=== PATIENT | female | born 1985 | race Hispanic/Latino ===

== ENCOUNTER 2018-05-17 18:25 | Inpatient (IN) | payer OTHER ==
[2017-11-13 10:26] VITALS: BMI 18.8
[2018-05-17] MEDS ORDERED: Oxytocin 30 UNIT 30 UNITS/500 ML BAG IV SCH (20:45)
--- NOTE | 2018-05-17 21:45 | OBADHP ---
Datetime: 05/17/2018 19:50 Admit Comment, IP Provider: CC: Vaginal spotting HPI: Patient is a 32 year old 38.3 weeks with LMP (08/27/17) and PAMELLA (05/28/18) by US, who presents to the [facility] with complaints of vaginal spotting that started today. Patient states that she was seen in the office this morning and was noted to be 4cm dilated with vaginal spotting. Patient admits to light cramping, pelvic pressure and light vaginal spotting but denies any vaginal bleeding, LOF, rece nt sexual activity. Patient admits to movement. 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 Hx: Menarche: 10 [place]: 12/regular/3-5 days Admits to hx of fibroids, had a hysteroscopic myomectomy 12/2016 Denies hx of STDs, Abnormal Pap smear and Ovarian cyst OB Hx: G1: Current, no complications PMHx: Asthma PSHx: hysterosopic Myomectomy FHx: Denies Medications: Albuterol, Iron supplement and vitamins Allergies: NKDA Social Hx: Lives with , senior staff psychologist, denies current or former use of tobacco, illicit drugs an d ETOH VS: See above PE: See PE comments A/P: Patient is a 32 year old 38.3 weeks with LMP (08/27/17) and PAMELLA (05/28/18) by US, who present s to the [facility] with complaints of vaginal spotting that started today with SVE in the office today at 4cm 1. Admit to the unit as per Dr. Washington 2. CEFM and [place] 3. Admission orders- See orders 4. LR @ 125cc/hr 5. Pitocin as per Dr. Murtaza Pitts 5. Anesthesia consult upon request 6. Anticipate spontaneous vaginal delivery All plans and managment instructions as per Dr. Murtaza Pitts All plans and management discussed with Dr. Felix Stiles, DO PGY 2 agree with above @ 38.3 wks with vaignal bleeding in labor admit cont otoco adn eemf pain magnemtn Extremities - PN: Normal Abdomen - PN: Normal Lungs - PN: Normal Heart - PN: Normal General - PN: Normal FHR - Baseline A Provider: 140 Comments, ACOG Physical Exam: Gen: NAD Cardio: RRR, +S1, +S2 Pulm: CTA B/BL Abdomen: Soft, Gravid Ext: No edema, No cyanosis and no clubbing EFM: 140, + accelerations [place]: Variability Gestation - Est Wks by US: 38.3 IP Hx Assessment: The History has been Reviewed and is Current Vital Signs Provider: Reviewed IP Chief Complaint: Vaginal bleeding NICHD Variability Prov Fetus A: Moderate 6-25bpm NICHD Accel Fetus A IP Provider: 15X15 Dilatation, Provider: 3 Effacement, Provider: 50 Station, Provider: -3 (Annotations: Data stored by CPN on behalf of user) IP Adm Impression: Term, intrauterine IP Admit Plan: Admit to unit
[2018-05-17 21:58] LABS: BASO % 0.1 % (0.0-2.0); EOS # 0.1 K/uL (0.0-0.7); EOS % 0.5 % (0.0-4.0); HEMOGLOBIN 13.1 g/dL (11.0-16.0); LYMPH # 1.5 K/uL (1.0-4.3); LYMPH % 14.8 % (20.0-40.0); MEAN CELL VOLUME 94.6 fL (81.0-99.0); MEAN CORPUSCULAR HEMOGLOBIN 32.6 pg (27.0-31.0); MEAN CORPUSCULAR HGB CONC 34.5 g/dL (33.0-37.0); MEAN PLATELET VOLUME 9.6 fL (7.2-11.7); MONO # 0.8 K/uL (0.0-0.8); MONO % 8.2 % (0.0-10.0); NEUT # 7.7 K/uL (1.8-7.0); NEUT % 76.4 % (50.0-75.0); RBC 4.01 Mil/uL (3.80-5.20); RED CELL DISTRIBUTION WIDTH 14.1 % (11.5-14.5); WHITE BLOOD COUNT 10.1 K/uL (4.8-10.8)
[2018-05-17 22:14] LABS: ALB/GLOB RATIO 1.2 (1.0-2.1); ALBUMIN 3.6 g/dL (3.5-5.0); ALT/SGPT 38 U/L (9-52); AST/SGOT 25 U/L (14-36); BLOOD UREA NITROGEN 11 mg/dL (7-17); CALCIUM 9.1 mg/dl (8.6-10.4); GFR NON-AFRICAN AMERICAN > 60
[2018-05-17 22:32] LABS: SQUAMOUS EPITHIAL 2 /hpf (0-5); URINE BACTERIA RARE (<OCC); URINE BILIRUBIN NEGATIVE (NEGATIVE); URINE BLOOD 3+ (NEGATIVE); URINE CLARITY Clear (Clear); URINE COLOR Yellow (YELLOW); URINE GLUCOSE (UA) NORMAL (Normal); URINE LEUKOCYTE ESTERASE NEG Leu/uL (Negative); URINE PROTEIN NEGATIVE (NEGATIVE); URINE UROBILINOGEN NORMAL mg/dL (0.2-1.0)
--- NOTE | 2018-05-17 22:53 | OBPN ---
Datetime: 05/17/2018 22:51 IP Progress Impression: Normal progression of labor IP Procedures: Artificial ROM IP Progress Plan: Continue present management Membranes, Provider: Ruptured Amniotic Fluid Color, Provider: Clear FHR - Baseline A Provider: 145 Gestation - Est Wks by US: 38.3 Presentation-Admit: Vertex IP Progress Note Comment: pt sen adn emaiedn with vaginal bleeidng and ctx weveyr 2-3 min 01/06, +FM, no lof VS see aobe VE; /-2 AROM blodoy scant plan @ 38.3 wks GA with aignjuju joshin in abooar tpe and cross cbc ivh cont jose oadn emf apangelist close obseraiatibon Vital Signs Provider: Reviewed NICHD Variability Prov Fetus A: Moderate 6-25bpm Dilatation, Provider: 4 Effacement, Provider: 70 Station, Provider: -2 Datetime: 05/17/2018 19:50 NICHD Accel Fetus A IP Provider: 15X15 FHR Category Provider Fetus A: Category I NICHD Decel Fetus A IP Provider: None
[2018-05-17 23:27] LABS: HEPATITIS B SURFACE AG Negative (NEGATIVE)
[2018-05-18] MEDS ORDERED: Oxytocin 30 UNIT 30 UNITS/500 ML BAG IV ONE ×2 (00:03→11:23)
[2018-05-18] MEDS ORDERED: Fentanyl/Bupivacaine HCl 250 ML EPI ONE (01:42)
[2018-05-18] MEDS: Lactated Ringer's 1,000 ML IV SCH ×2 (02:00→07:00)
--- NOTE | 2018-05-18 11:23 | OBPN ---
Datetime: 05/18/2018 09:00 IP Progress Impression: Normal progression of labor IP Informed Consent Obtain: Vaginal Delivery IP Procedures: Scalp Electrode; Sterile Vag Exam IP Progress Plan: Continue present management; Augmentation; Antibiotic therapy; Anticipate Vaginal Delivery Contraction Comments Provider: 2-3 MINS FHR - Baseline A Provider: 140 IP Fetus A Comments: S/P Bradycardic episode Gestation - Est Wks by US: 38.4 IP Progress Note Comment: CTSP re Bradycardic episode SVE 9/100/0-+1 AROM was performed last PM by Dr. Pitts ISL placed and FHT return to normal after position changes Pitocin was stopped and will probably re-star after a while Dr. Pitts aware and agrees with POC Anticipate a vaginal delivery Epidural working well Vital Signs Provider: Reviewed; Within Normal Limits NICHD Accel Fetus A IP Provider: 10X10 NICHD Variability Prov Fetus A: Moderate 6-25bpm Dilatation, Provider: 9 Effacement, Provider: 100 Station, Provider: 0-+1 (Annotations: Data stored by CPN on behalf of user)
--- NOTE | 2018-05-18 13:26 | OBPN ---
Datetime: 05/18/2018 13:20 IP Progress Impression: Normal progression of labor IP Progress Plan: Continue present management Membranes, Provider: Ruptured Contraction Comments Provider: q 2-3m FHR - Baseline A Provider: 150 Gestation - Est Wks by US: 38.4 IP Progress Note Comment: pt seen adn examiend fo rprgoresisn ofl aor s/p epduira vss ve; 100/0 E:MF cat i jose; q 2-3 min a/p @ 38.2 wks GA in active labor con tcurren tagen start pushign when fully diated Vital Signs Provider: Reviewed NICHD Variability Prov Fetus A: Moderate 6-25bpm Dilatation, Provider: 9 Effacement, Provider: 100 Station, Provider: 0
--- NOTE | 2018-05-18 16:34 | OBDS ---
DELIVERY PERSONNEL Delivery Doctor: Candice Pitts MD Biologist Aide: Abigail Weiss RN Anesthesiologist: Jennifer Bo MD Resident: Dr Casillas MATERNAL INFORMATION Delivery Anesthesia: Epidural Provider Comments: pt was fully dilated and pushing. Atruamic, spontanoeu delivery of head in OA pos tion, nuchal cord noted x 1 and reduced. aturmatic, spotneous delivery of anteiro followed by poseiro shoulder followed by delivery of the body. boht oral and nasal passaes of the baby were bulb suction ed. umbiuclal cord was clmaped and cut. baby handed to mother on abodmen with rn jourdan. cord bloo d and cord gases collecatec and sent x 2. sponteanodu deliver of intact palcenta with membrenas. fund us firm. good hemosaiss, first degree perineal laceration with 2-0 chromic. no complications. live female infant agaprs 9, 9 ebl 300 ml weight of 6lbs 6 ounces LABOR SUMMARY EDC: 05/28/2018 00:00 No. Babies in Womb: 1 Attempted: No Labor Anesthesia: Epidural LABOR INFORMATION Onset of Labor: 05/17/2018 22:30 Oxytocin: Augmentation Group B Beta Strep: Negative Steroids Given: None Reason Steroids Not Administered: Not Applicable MEMBRANES Membranes Rupture Method: Artificial Rupture of Membranes: 05/17/2018 22:38 Length of Rupture (hrs): 17.58 Amniotic Fluid Color: Clear Amniotic Fluid Amount: Scant STAGES OF LABOR Stage 3 hrs: 0 Stage 3 min: 7 Total Time in Labor hrs: 17 Total Time in Labor min: 50 BABY A INFORMATION Delivery Date/Time: 05/18/2018 16:13 Method of Delivery: Vaginal Born in Route : No : N/A Forceps: N/A Vacuum Extraction: N/A Shoulder Dystocia : No SHOULDER DYSTOCIA BABY A Delivery Date/Time: 05/18/2018 16:13 PRESENTATION/POSITION BABY A Presentation: Cephalic Cephalic Presentation: Vertex Vertex Position: Right Occipital Anterior Breech Presentation: N/A PLACENTA INFORMATION BABY A Placenta Delivery Time : 05/18/2018 16:20 Placenta Method of Delivery: Expressed Placenta Status: Delivered SCORES BABY A Heart Rate 1 min: >100 bpm Resp Effort 1 min: Good Cry Reflex Irritability 1 min: Cough or Sneeze or Pulls Away Muscle Tone 1 min: Active Motion Color 1 min: Body [place], Extremities Blue Resuscitation Effort 1 min: Tactile Stimulation SCORE 1 MIN: 9 Heart Rate 5 min: >100 bpm Resp Effort 5 min: Good Cry Reflex Irritability 5 min: Cough or Sneeze or Pulls Away Muscle Tone 5 min: Active Motion Color 5 min: Body [place], Extremities Blue Resuscitation Effort 5 min: N/A SCORE 5 MIN: 9 INFORMATION BABY A Gestational Age at Delivery: 38.4 Gestational Status: Term Outcome : Liveborn Infant Condition : Stable Infant Sex: Female IDENTIFICATION/MEDS BABY A ID Band Number: [id number] ID Band Location: Left Leg; Left Arm Sensor Applied: Yes Sensor Number: [id number] Sensor Location : Cord Clamp Vitamin K Given : Not Given Erythromycin Given: Not Given WEIGHT/LENGTH BABY A Birthweight (gms): 2880 Weight (lb): 6 Infant Weight (oz): 6 Length Inches: 18.00 Length cms: 45.7 CORD INFORMATION BABY A No. 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
[2018-05-18] MEDS ORDERED: Oxycodone/Acetaminophen 5/325 mg Tab PO PRN (17:08)
[2018-05-18] MEDS ORDERED: Benzocaine/Menthol 20%-0.5% Topical Spray (60 ml) TOP PRN (17:11)
[2018-05-19 08:28] LABS: BASO % 0.2 % (0.0-2.0); EOS % 0.2 % (0.0-4.0); LYMPH # 1.4 K/uL (1.0-4.3); LYMPH % 9.8 % (20.0-40.0); MEAN CELL VOLUME 95.4 fL (81.0-99.0); MEAN CORPUSCULAR HGB CONC 34.6 g/dL (33.0-37.0); MEAN PLATELET VOLUME 9.5 fL (7.2-11.7); MONO # 0.9 K/uL (0.0-0.8); MONO % 6.1 % (0.0-10.0); NEUT # 11.7 K/uL (1.8-7.0); NEUT % 83.7 % (50.0-75.0); PLATELET COUNT 136 K/uL (130-400); RBC 3.12 Mil/uL (3.80-5.20); RED CELL DISTRIBUTION WIDTH 13.9 % (11.5-14.5)
[2018-05-19 08:31] LABS: HEMOGLOBIN 10.3 g/dL (11.0-16.0)
[2018-05-19 09:14] LABS: ANISOCYTOSIS SLIGHT; BANDS 1 % (0-2); HYPOCHROMIC SLIGHT; LYMPHOCYTE 8 % (20-40); MONOCYTE 3 % (0-10); NEUTROPHIL 88 % (50-75); PLATELET ESTIMATE NORMAL (NORMAL); POIKILOCYTOSIS SLIGHT; TOTAL CELLS COUNTED 100
[2018-05-19 17:06] VITALS: O2SAT 97
--- NOTE | 2018-05-19 18:02 | OBPPN ---
Datetime: 05/19/2018 10:36 PP Pain Prov: Within normal limits PP Nausea Prov: Denies PP Flatus Prov: Yes PP BM Prov: Yes PP Breasts Prov: Normal PP Heart Prov: Normal PP Lungs Prov: Normal PP Abdomen/Uterus Prov: Normal PP Lochia Prov: Normal PP Vulva/Perineum Prov: Normal PP CVA Tenderness Prov: Normal PP Extremities Prov: Normal PP C/S Incision Prov: Not Applicable PP Progress Prov: Normal PP Comments Phys Exam Prov: Abdomen: Soft. Non distended. Fundus firm, mobile, non tender, 1 FB belo w umbilicus. Mild lochia rubra. Extremities: no calf tenderness All other systems reviewed and are negative PP Impression Prov: Normal progression; Pain PP Plan Prov: Continue present management PP Progress Note Prov: Saurabh Mercedes DO, PGY-1 PPM Progress Note for Dr. Marquez covering for Dr. Oni Pitts Ms. Winston was seen and examined at bedside this AM. She reports she is feeling well overall and d enies nausea/vomiting. She states she had a BM earlier this morning. She is currently a nd mother and baby are tolerating well. She admits to some pain at suture site that is intermittent a nd burning but well controlled. She denies other pain. Covering Attending Note: Patient seen with resident at approximately 1220 hours. Receivedin room 455, attending to . present. I agree with the above as documented. - Trend in H/H: adm 13.1/37.9 -> 10.3/29.8. Rh(-). Assessment: PPD#1, 32 y.o. P1, S/P . Afebrile, vital signs stable. Rh (-); is Rh(+) - f or Rhogam. Decrease in H/H noted; patient is asymptomatic and hemodynamically stable. Patient reassur ed, all pain and discomfort are within normal limits. Plan: 1) Continue post care 2) Encourage ambulationand hydration 3) Rhgam today 4) Anticipate discharge home 05/20/18 IP PP Procedures: None Vital Signs Provider PP: Reviewed; Within Normal Limits
[2018-05-20 08:17] VITALS: BP 116/86; PULSE 84; RESP 20; TEMP 98.1
--- NOTE | 2018-05-20 10:31 | OBDCSUM ---
Datetime: 05/20/2018 10:28 Discharged to, Provider: Home Disch Instr Activity: Normal activity Disch Instr Diet: Regular Discharge Instructions, Provider: Routine instructions given Discharge Diagnosis, Provider: Term Delivered Discharge Time: 05/20/2018 10:28 Follow up in weeks, Provider: 6 WKS. Disch Referrals: None Contraception discussed, Prov: Yes Discharge Comment, Provider: DOING WELL, NO COMPLAINTS AYSHA PO DIET, HGB: 10.3 32 S/P PPD#2 VSS;AFEBRILE D/C HOME W/IRON COLACE DERMAPLAST SPRAY Dr Signature: Kayla HURTADO Datetime: 05/20/2018 10:24 Discharged to, Provider: Home Follow up at, Provider: Dr. Pitts Disch Instr Activity: May be up to bathroom; May be up for meals; May Shower Disch Instr Diet: Regular Discharge Diet restrict Prov: none Discharge Time: 05/20/2018 12:00 Follow up in weeks, Provider: 06/26/18 Disch Referrals: None Disch Activity Restrictions: No lifting; No sexual activity; Nothing in vagina - [place], tampon s, douche
[2018-05-20] MEDS ORDERED: Influenza Virus Vaccine 45 mcg/0.5 ml Syr (36 months - 7 yrs) IM ONE (13:54)
[2018-05-20] MEDS ORDERED: Influenza Vaccine 22.5 mcg/0.25 ml Syr (6 - 35 months) IM ONE (14:00)
[2018-05-20] MEDS ORDERED: Influenza Vaccine 60 MCG/0.5 ML SYR (3 yr & up) IM ONE (14:05)
== END 2018-05-20 14:30 | disposition home or self-care (01) | DRG 807 ==
LOC: C.EROB 18:25 → C.4LDOR 20:20 → C.4D 05-18 01:37 → C.4M 05-18 20:00
PROVIDERS: ADMIT Obstetrics & Gynecology; ATTEND Obstetrics & Gynecology
PROC: 4A1H74Z Monitoring of Products of Conception, Cardiac Electrical Activity, Via Natural or Artificial Opening (ICD-10-PCS; 2018-05-17)
PROC: 10907ZC Drainage of Amniotic Fluid, Therapeutic from Products of Conception, Via Natural or Artificial Opening (ICD-10-PCS; 2018-05-17)
PROC: 10E0XZZ Delivery of Products of Conception, External Approach (ICD-10-PCS; principal; 2018-05-18)
PROC: 0HQ9XZZ Repair Perineum Skin, External Approach (ICD-10-PCS; 2018-05-18)
DX: O67.9 Intrapartum hemorrhage, unspecified (principal); Z37.0 Single live birth; Z3A.38 38 weeks gestation of pregnancy; O69.81X0 Labor and delivery complicated by cord around neck, without compression, not applicable or unspecified; O70.0 First degree perineal laceration during delivery